=== PATIENT | female | born 2005 | race Caucasian/White ===

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

== ENCOUNTER → 2025-03-15 14:03 | Outpatient (BNVA) | payer OTHER, SELFPAY | PROVIDERS: Family Provider Nurse Practitioner Family; Visit Provider Obstetrics & Gynecology | DX: Z34.00 Encounter for supervision of normal first pregnancy, unspecified trimester (principal) | CPT/HCPCS: 81025; 84315 ==

== ENCOUNTER 2025-03-29 12:32 | Outpatient (CLI) | payer OTHER, SELFPAY ==
--- NOTE | 2025-03-29 12:45 | USR_ITS ---
PROCEDURE INFORMATION: Exam: US First Trimester, Transabdominal and US , Transvaginal Exam date and time: 03/29/2025 1:05 PM Age: 19 years old Clinical indication: Screening exam; Routine US, uterus; Additional info: Z34.80 - encounter for supervision of other normal pregna. . . , Schedule before 03/29/25 LABS AND CLINICAL REPORTS: Last menstrual period start date: 01/16/2025 Gestational age (Established): 10 w 2 d Estimated due date (Established): 10/23/2025 TECHNIQUE: Imaging protocol: Real-time transabdominal obstetrical ultrasound of the maternal pelvis and a first trimester , less than 14 weeks 0 days, with image documentation. Transvaginal imaging was used for better evaluation of the fetus, adnexa, and/or cervix. COMPARISON: No relevant prior studies available. FINDINGS: GESTATION: Gestation: Yolk sac measures 3.3 mm. Embryo/ cardiac activity (BPM): 169 bpm BIOMETRY: Mean sac diameter: 4.54 cm. EGA (MSD) is 10 w 0 d ; crown-rump length 2.27 cm, EGA 9 weeks 0 days MATERNAL: Uterus: Unremarkable. Cervix: Unremarkable. Endocervical canal is closed. Right ovary/adnexa: Not identified Left ovary/adnexa: Dominant follicle, normal blood flow Intraperitoneal space: Small amount of free fluid. US/US OB <=14 wk fetus w transvag IMPRESSION: Intrauterine , biometrics as above.
== END 2025-03-29 12:33 | disposition home or self-care (01) ==
LOC: RAD 12:36
PROVIDERS: Family Provider Nurse Practitioner Family; PCP Nurse Practitioner Family; Visit Provider Obstetrics & Gynecology
DX: Z34.81 Encounter for supervision of other normal pregnancy, first trimester (principal); Z3A.10 10 weeks gestation of pregnancy
CPT/HCPCS: 76801; 76817

== ENCOUNTER → 2025-04-12 12:37 | Outpatient (BNVA) | payer OTHER, SELFPAY | PROVIDERS: Family Provider Nurse Practitioner Family; Visit Provider Nurse Practitioner Women's Health | DX: Z34.01 Encounter for supervision of normal first pregnancy, first trimester (principal) | CPT/HCPCS: 80307; 81000; 85025; 86592; 86762; 86803; 86850; 86900; 87086; 87340; 87806 ==

== ENCOUNTER → 2025-04-17 10:17 | Outpatient (BNVA) | payer OTHER, SELFPAY | PROVIDERS: Family Provider Nurse Practitioner Family; Visit Provider Obstetrics & Gynecology | DX: Z34.01 Encounter for supervision of normal first pregnancy, first trimester (principal) | CPT/HCPCS: 84315 ==

== ENCOUNTER → 2025-05-22 08:24 | Outpatient (BNVA) | payer OTHER, SELFPAY | PROVIDERS: Family Provider Nurse Practitioner Family; Visit Provider Nurse Practitioner Women's Health | DX: Z34.02 Encounter for supervision of normal first pregnancy, second trimester (principal) | CPT/HCPCS: 82105; 84315; 87491; 87591; 87661 ==